=== PATIENT | male | born 1950 | race Caucasian/White ===

== ENCOUNTER → 2017-09-30 | Outpatient (CLI) | payer MEDICARE, BC ==
[~2017-09-30] MED LIST: LIPITOR40 MG PO
== END | disposition home or self-care (01) ==
LOC: CDC 11:32
DX: Z01.810 Encounter for preprocedural cardiovascular examination (principal); I44.0 Atrioventricular block, first degree
CPT/HCPCS: 93000

== ENCOUNTER 2018-05-16 17:16 | Emergency (ER) | payer OTHER, BC ==
[~2018-05-16] VITALS: Ht 172.7 cm; Wt 82.9 kg
[2018-05-16 17:55] LABS: APPEARANCE SL.HAZY ((CLEAR)); BILIRUBIN NEGATIVE; BLOOD NEGATIVE; COLOR YELLOW ((YELLOW)); GLUCOSE (STRIP) NEGATIVE; KETONES 5; LEUKOCYTES NEGATIVE; NITRITE NEGATIVE; PROTEIN (STRIP) 30; SPECIFIC GRAVITY 1.029 (1.000-1.030); UROBILINOGEN 0.2 MG/DL (0.2-1.0)
[2018-05-16 18:04] LABS: BACTERIA NONE SEEN /HPF; CALCIUM OXALATE CRYSTALS 4+ /HPF; EPITHELIAL CELLS RARE /HPF; MUCUS TRACE /LPF; WHITE BLOOD CELLS NONE SEEN /HPF (0-5)
[2018-05-16 18:11] LABS: CHLORIDE 98 mEq/L (99-109); POTASSIUM 4.1 mEq/L (3.7-5.4); SODIUM 133 mEq/L (136-147)
[2018-05-16 18:12] LABS: GLUCOSE 94 mg/dL (70-99)
[2018-05-16 18:16] LABS: CREATININE 1.4 mg/dL (0.6-1.3); GFR ESTIMATE (CALCULATED) 53 mL/min/ (58.99-99999)
[2018-05-16 18:17] LABS: UREA NITROGEN (BUN) 19 mg/dL (9-23)
[2018-05-16] MEDS ORDERED: NORCO 5/3251 TABLET PO (20:27)
[2018-05-16] MEDS ORDERED: FLOMAX0.4 MG PO (20:27)
[2018-05-16] MEDS ORDERED: ZOFRAN ODT8 MG PO (20:27)
[2018-05-16 20:30] VITALS: BP 156/83
== END 2018-05-16 20:30 | disposition home or self-care (01) ==
LOC: EME 17:16
PROVIDERS: Physician Assistant
DX: R10.9 Unspecified abdominal pain (principal); R31.9 Hematuria, unspecified; C61 Malignant neoplasm of prostate; E78.5 Hyperlipidemia, unspecified; Z87.442 Personal history of urinary calculi
CPT/HCPCS: 74018; 76770; 80048; 81003; 99281; 99285